=== PATIENT | male | born 1955 | race African-American/Black ===

== ENCOUNTER → 2016-11-11 | Outpatient (CLI) | payer MEDICARE ==
[2015-08-20 17:32] VITALS: BP 123/87
--- NOTE | 2016-11-11 16:49 | RAD ---
Bilateral lower extremity venous ultrasound, 11/11/2016: History: Bilateral leg edema Duplex evaluation of the deep veins in the lower extremities was performed including grayscale, color-flow and spectral Doppler analysis. The femoral and popliteal veins demonstrate normal compressibility and normal responses to distal augmentation maneuvers. Color imaging of those vessels shows no evidence of intraluminal clot. The visualized deep veins in both calves are patent. IMPRESSION: There is no sonographic evidence of deep vein thrombosis in either lower extremity.
== END | disposition home or self-care (01) ==
LOC: US 15:59
PROVIDERS: ATTEND Nurse Practitioner Adult Health
DX: I10 Essential (primary) hypertension (principal); K13.79 Other lesions of oral mucosa; R60.0 Localized edema
CPT/HCPCS: 93970

== ENCOUNTER 2016-11-28 01:55 | Emergency (ER) | payer MEDICARE ==
[~2016-11-28] VITALS: Ht 182.9 cm; Wt 114.0 kg
[2016-11-28] MEDS ORDERED: ASPIRIN 325 MG TABLET ONE (02:04)
--- NOTE | 2016-11-28 02:09 | EKG ---
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
[2016-11-28] MEDS ORDERED: fentaNYL PF 100 MCG/2 ML VIAL IV PRN ×2 (02:15)
[2016-11-28] MEDS ORDERED: NITROGLYCERIN SUBLINGUAL 0.4 MG BOTTLE OF 25. SL PRN (02:15)
[2016-11-28] MEDS ORDERED: ASPIRIN 81 MG TAB.CHEW PO ONE (02:30)
[2016-11-28] MEDS ORDERED: ONDANSETRON PF 4 MG/2 ML VIAL. IV ONE (02:30)
[2016-11-28 02:40] LABS: BASO # 0.1 x10^3/uL (0.0-0.2); BASO % 1 % (0-3); EOS # 0.1 x10^3/uL (0.0-0.7); EOS % 1 % (0-3); HEMATOCRIT 48.3 % (39.0-53.0); HEMOGLOBIN 16.2 g/dL (13.0-17.5); LYMPH # 2.2 x10^3/uL (1.0-4.8); LYMPH % 20 % (24-48); MEAN CORPUSCULAR HEMOGLOBIN 33 pg (25-35); MEAN CORPUSCULAR HGB CONC 34 g/dL (31-37); MEAN CORPUSCULAR VOLUME 98 fL (79-100); MONO # 0.9 x10^3/uL (0.0-1.1); MONO % 8 % (0-9); NEUT # 7.9 x10^3uL (1.8-7.7); NEUT % 70 % (31-73); PLATELET COUNT 250 x10^3/uL (140-400); RED BLOOD COUNT 4.95 x10^6/uL (4.30-5.70); RED CELL DISTRIBUTION WIDTH 14.3 % (11.5-14.5); WHITE BLOOD COUNT 11.2 x10^3/uL (4.0-11.0)
[2016-11-28] MEDS ORDERED: CONTRAST GIVEN MC PRN (02:45)
[2016-11-28 02:52] LABS: ALBUMIN 3.3 g/dL (3.4-5.0); ALBUMIN/GLOBULIN RATIO 0.8 (1.0-1.7); CALCIUM 8.9 mg/dL (8.5-10.1); CREATININE 1.8 mg/dL (0.7-1.3); GFR 46.3; POTASSIUM 3.5 mmol/L (3.5-5.1); TOTAL BILIRUBIN 0.4 mg/dL (0.2-1.0); TOTAL PROTEIN 7.7 g/dL (6.4-8.2)
[2016-11-28] MEDS ORDERED: IOHEXOL 300 MG/ML 75 ML VIAL. IV ONE (03:00)
--- NOTE | 2016-11-28 03:54 | RAD ---
Examination: CT angiogram chest and CT abdomen and pelvis without contrast HISTORY: History of chest pain, shortness of breath, hypertension COMPARISON: None available TECHNIQUE: Axial CT angiography images of the chest were performed with IV contrast. Coronal and sagittal 3-D MIP reformats are performed Axial CT images of the abdomen pelvis with was performed without IV contrast however it was performed after contrast administration for CT PE protocol. Coronal and sagittal images also performed Exposure: One or more of the following individualized dose reduction techniques were utilized for this examination: 1. Automated exposure control 2. Adjustment of the mA and/or kV according to patient size 3. Use of iterative reconstruction technique FINDINGS: The visualized thyroid gland grossly appears unremarkable. The ascending aorta measures 3.8 cm in transverse dimension. Majority of IV contrast is within the aorta in thoracic region which limits evaluation of the pulmonary arteries. Grossly there is very minimal contrast in the pulmonary arteries which makes evaluation of the pulmonary arteries somewhat limited. No obvious filling defect in the central pulmonary arteries on this limited exam. Mild atelectasis right lung base. No evidence of pleural effusion or pneumothorax. The visualized liver, spleen, right adrenal grossly appears unremarkable. Large cyst identified in the right kidney measuring 12.9 cm. There is a small cystic structure measuring 1.9 cm in the left kidney likely a cyst. There is moderate high density fluid, measuring 56 Hounsfield units with stranding identified in the retroperitoneum on the left abutting left adrenal gland and the pancreas the pancreas in the region of the left renal vessels and superior mesenteric vessels, likely bleed in the retroperitoneum, the source of which is difficult to discern. The IVC is somewhat flattened at this level. The gallbladder is mildly distended. Small gallstones identified within the gallbladder. The stomach is mildly distended. The small bowel is nondilated. Feces and gas noted in the colon. The appendix is not clearly identified. Urinary bladder is mildly distended. Mild thickened appearance of the urinary bladder wall. Mild degenerative changes visualized lumbar spine. IMPRESSION: 1. Moderate high density fluid, measuring 56 Hounsfield units with stranding identified in the retroperitoneum on the left abutting left adrenal gland and the pancreas in the region of the left renal vessels and superior mesenteric vessels, likely bleed in the retroperitoneum, the source of which is difficult to discern. Correlate with lab values. 2. Evaluation of the pulmonary arteries is limited due to minimal contrast within the pulmonary arteries. On the visualized images no evidence of filling defect to suggest pulmonary embolus identified centrally. 3. Bilateral renal cysts. 4. Gallstones within the gallbladder. 5. Mild thickened appearance the urinary bladder wall, nonspecific. Report called to ER physician at time of dictation. Electronically signed by: Demond Bertrand MD (11/28/2016 3:51 AM) [facility]
[2016-11-28 04:30] VITALS: BP 145/82
[2016-11-28 04:35] LABS: BARBITURATES NEG (NEG); BENZODIAZEPINES NEG (NEG); CANNABINOIDS POS (NEG); COCAINE NEG (NEG); METHADONE NEG (NEG); OPIATES NEG (NEG); PHENCYCLIDINE NEG (NEG)
[2016-11-28 04:40] LABS: AMPHETAMINE/METHAMPHETAMINE NEG (NEG)
[2016-11-28 04:41] LABS: BILIRUBIN,URINE NEG (NEG); CLARITY,URINE CLEAR; COLOR,URINE YELLOW; GLUCOSE,URINE NEG (NEG); NITRITE,URINE NEG (NEG); UROBILINOGEN,URINE 0.2 mg/dL (0.2 mg/dL)
[2016-11-28 04:42] LABS: BACTERIA,URINE 0 /HPF (0-FEW); RBC,URINE 0 /HPF (0-2); WBC,URINE 0 /HPF (0-4)
--- NOTE | 2016-11-28 05:28 | ED.ADGEN ---
Past History Past Medical History: Arthritis, Hypertension, Other Past Surgical History: Appendectomy Alcohol Use: Occasionally Drug Use: None Adult General HPI HPI Patient is a hypertension, "fast heart rate", and gouty arthritis, who presents the emergency department with a complaint of chest pain located in the left side of his chest radiating to the left back, that woke her from sleep about an hour ago. Patient describes the pain as aching, denies any inciting or improving factors. Patient states he feels "queasy", but has had no vomiting, denies any shortness of breath, denies any focal weakness, numbness, tingling, vision changes, abdominal pain, diarrhea, urinary complaints, injuries, or similar symptoms previously. He states he has been compliant with his medications. He states he took a tramadol a few hours ago for his pain in his feet and ankles, which was recently diagnosed as gouty arthritis. Patient noted to be hypertensive upon arrival to the emergency department, blood pressure of 172/100 in the right upper extremity, and 169/28 in the left upper extremity, heart rate is in the 70s and 80s, oxygen saturation is 97-98% on room air, with a respiratory rate of 20 that is unlabored. Patient denies any drugs, alcohol or cigarette use. States that he has some swelling in his feet and ankles which is actually improved today, he states that he was evaluated several weeks ago for possible DVT and that was negative, that time he was informed that he had arthritis. He denies any recent travel, history of DVT or PE, any rashes, any sick contacts or exposures. Review of Systems Review of Systems Constitutional: Denies fever or chills [] Eyes: Denies change in visual acuity, redness, or eye pain [] HENT: Denies nasal congestion or sore throat [] Respiratory: Denies cough or shortness of breath [] Cardiovascular: No additional information not addressed in HPI, left-sided chest pain radiating to the left back. Associated with nausea.] GI: Denies abdominal pain, nausea, vomiting, bloody stools or diarrhea [] : Denies dysuria or hematuria [] Musculoskeletal: Denies back pain or joint pain [] Integument: Denies rash or skin lesions [] Neurologic: Denies headache, focal weakness or sensory changes [] Endocrine: Denies polyuria or polydipsia [] Current Medications Current Medications Current Medications Medications (Trade) Dose Ordered Sig/Heydi Start Time Stop Time Status Last Admin Dose Admin Aspirin (Saba Aspirin) 325 mg STK-MED ONCE 11/28/16 02:04 11/28/16 02:05 DC Aspirin (Children'S Aspirin) 324 mg 1X ONCE 11/28/16 02:30 11/28/16 02:31 DC Fentanyl Citrate (Fentanyl 2ml Vial) 25 mcg PRN Q15MIN PRN 11/28/16 02:15 11/29/16 02:14 11/28/16 02:20 25 MCG Info (Do NOT chart on this entry -- for MONITORING) 1 each PRN DAILY PRN 11/28/16 02:45 11/30/16 02:44 Iohexol (Omnipaque 300 Mg/ml) 75 ml 1X ONCE 11/28/16 03:00 11/28/16 03:01 DC 11/28/16 02:53 75 ML Nitroglycerin (Nitrostat) 0.4 mg PRN Q5MIN PRN 11/28/16 02:15 11/29/16 02:14 11/28/16 02:20 0.4 MG Ondansetron HCl (Zofran) 4 mg 1X ONCE 11/28/16 02:30 11/28/16 02:31 DC 11/28/16 02:30 4 MG Allergies Allergies Allergies Coded Allergies Type Severity Reaction Last Updated Verified No Known Drug Allergies 08/20/15 No Physical Exam Physical Exam Constitutional: Well developed, well nourished, no acute distress, non-toxic appearance. [] HENT: Normocephalic, atraumatic, bilateral external ears normal, oropharynx moist, no oral exudates, nose normal. [] Eyes: PERRLA, EOMI, conjunctiva normal, no discharge. [] Neck: Normal range of motion, no tenderness, supple, no stridor. [] Cardiovascular:Heart rate regular rhythm, no murmur, S1, S2, no rubs or gallops. No chest wall crepitus or tenderness, unable to reproduce symptoms with palpation. [] Lungs & Thorax: Bilateral breath sounds clear to auscultation, no wheezing, rhonchi, rales. [] Abdomen: Bowel sounds normal, soft, no tenderness, no rebound, rigidity, no guarding, no masses, no pulsatile masses. [] Skin: Warm, dry, no erythema, no rash. [] Back: No tenderness, no CVA tenderness. [] Extremities: No cyanosis, no clubbing, ROM intact, no edema. Patient noted to have mild swelling in the feet bilaterally, right centigrade left, patient currently has a compression stocking in place over the right foot and ankle. No evidence of injury, no abscess formation or induration, tenderness to palpation noted in this area. Negative Homans sign. Neurologic: Alert and oriented X 3, normal motor function, normal sensory function, no focal deficits noted. [] Psychologic: Affect normal, judgement normal, mood normal. [] Current Patient Data Vital Signs Vital Signs Date Time Temp Pulse Resp B/P (MAP) Pulse Ox O2 Delivery O2 Flow Rate FiO2 11/28/16 02:20 172/100 11/28/16 02:00 97.4 67 16 95 Room Air Lab Results Laboratory Tests Test 11/28/16 02:00 11/28/16 04:00 White Blood Count 11.2 x10^3/uL (4.0-11.0) H Red Blood Count 4.95 x10^6/uL (4.30-5.70) Hemoglobin 16.2 g/dL (13.0-17.5) Hematocrit 48.3 % (39.0-53.0) Mean Corpuscular Volume 98 fL (79-100) Mean Corpuscular Hemoglobin 33 pg (25-35) Mean Corpuscular Hemoglobin Concent 34 g/dL (31-37) Red Cell Distribution Width 14.3 % (11.5-14.5) Platelet Count 250 x10^3/uL (140-400) Neutrophils (%) (Auto) 70 % (31-73) Lymphocytes (%) (Auto) 20 % (24-48) L Monocytes (%) (Auto) 8 % (0-9) Eosinophils (%) (Auto) 1 % (0-3) Basophils (%) (Auto) 1 % (0-3) Neutrophils # (Auto) 7.9 x10^3uL (1.8-7.7) H Lymphocytes # (Auto) 2.2 x10^3/uL (1.0-4.8) Monocytes # (Auto) 0.9 x10^3/uL (0.0-1.1) Eosinophils # (Auto) 0.1 x10^3/uL (0.0-0.7) Basophils # (Auto) 0.1 x10^3/uL (0.0-0.2) Prothrombin Time 10.4 SEC (9.4-11.4) Prothrombin Time INR 1.0 (0.9-1.1) PTT 25 SEC (23-33) Sodium Level 143 mmol/L (136-145) Potassium Level 3.5 mmol/L (3.5-5.1) Chloride Level 106 mmol/L (98-107) Carbon Dioxide Level 29 mmol/L (21-32) Anion Gap 8 (6-14) Blood Urea Nitrogen 17 mg/dL (8-26) Creatinine 1.8 mg/dL (0.7-1.3) H Estimated GFR (Cockcroft-Gault) 46.3 BUN/Creatinine Ratio 9 (6-20) Glucose Level 123 mg/dL (70-99) H Calcium Level 8.9 mg/dL (8.5-10.1) Total Bilirubin 0.4 mg/dL (0.2-1.0) Aspartate Amino Transferase (AST) 17 U/L (15-37) Alanine Aminotransferase (ALT) 32 U/L (16-63) Alkaline Phosphatase 99 U/L (46-116) Troponin I Quantitative < 0.017 ng/mL (0-0.055) XE-Irb-I-Type Natriuretic Peptide 147 pg/mL (0-124) H Total Protein 7.7 g/dL (6.4-8.2) Albumin 3.3 g/dL (3.4-5.0) L Albumin/Globulin Ratio 0.8 (1.0-1.7) L Lipase 208 U/L (73-393) Urine Collection Type Void Urine Color Yellow Urine Clarity Clear Urine pH 5.5 Urine Specific [place] 1.015 Urine Protein Neg (NEG-TRACE) Urine Glucose (UA) Neg mg/dL (NEG) Urine Ketones (Stick) Neg mg/dL (NEG) Urine Blood Neg (NEG) Urine Nitrite Neg (NEG) Urine Bilirubin Neg (NEG) Urine Urobilinogen Dipstick 0.2 mg/dL (0.2 mg/dL) Urine Leukocyte Esterase Neg (NEG) Urine RBC 0 /HPF (0-2) Urine WBC 0 /HPF (0-4) Urine Squamous Epithelial Cells None /LPF Urine Bacteria 0 /HPF (0-FEW) Urine Opiates Screen Neg (NEG) Urine Methadone Screen Neg (NEG) Urine Barbiturates Neg (NEG) Urine Phencyclidine Screen Neg (NEG) Urine Amphetamine/Methamphetamine Neg (NEG) Urine Benzodiazepines Screen Neg (NEG) Urine Cocaine Screen Neg (NEG) Urine Cannabinoids Screen Pos (NEG) Urine Ethyl Alcohol Neg (NEG) EKG EKG EC: Sinus rhythm, heart rate 60 beats/minute, upright axis, QTC of 422, ND of 158, QRS of 80, upright axis, contour normality is noted in the anterior leads, no ST elevations or depressions, abnormal ECG, no prior for comparison, does not meet STEMI criteria. As interpreted by me. [] Radiology/Procedures Radiology/Procedures [][address] [address] IMAGING REPORT Signed PATIENT: HERBER DELGADO ACCOUNT: [id number] : 1955 LOCATION: ER AGE: 61 SEX: M EXAM STATUS: REG ER ORD. PHYSICIAN: ALHAJI CAM DO REASON: HTN//abnormal CT chest PROCEDURE: CT ABDOMEN PELVIS WO CONTRAST Examination: CT angiogram chest and CT abdomen and pelvis without contrast HISTORY: History of chest pain, shortness of breath, hypertension COMPARISON: None available TECHNIQUE: Axial CT angiography images of the chest were performed with IV contrast. Coronal and sagittal 3-D MIP reformats are performed Axial CT images of the abdomen pelvis with was performed without IV contrast however it was performed after contrast administration for CT PE protocol. Coronal and sagittal images also performed Exposure: One or more of the following individualized dose reduction techniques were utilized for this examination: 1. Automated exposure control 2. Adjustment of the mA and/or kV according to patient size 3. Use of iterative reconstruction technique FINDINGS: The visualized thyroid gland grossly appears unremarkable. The ascending aorta measures 3.8 cm in transverse dimension. Majority of IV contrast is within the aorta in thoracic region which limits evaluation of the pulmonary arteries. Grossly there is very minimal contrast in the pulmonary arteries which makes evaluation of the pulmonary arteries somewhat limited. No obvious filling defect in the central pulmonary arteries on this limited exam. Mild atelectasis right lung base. No evidence of pleural effusion or pneumothorax. The visualized liver, spleen, right adrenal grossly appears unremarkable. Large cyst identified in the right kidney measuring 12.9 cm. There is a small cystic structure measuring 1.9 cm in the left kidney likely a cyst. There is moderate high density fluid, measuring 56 Hounsfield units with stranding identified in the retroperitoneum on the left abutting left adrenal gland and the pancreas the pancreas in the region of the left renal vessels and superior mesenteric vessels, likely bleed in the retroperitoneum, the source of which is difficult to discern. The IVC is somewhat flattened at this level. The gallbladder is mildly distended. Small gallstones identified within the gallbladder. The stomach is mildly distended. The small bowel is nondilated. Feces and gas noted in the colon. The appendix is not clearly identified. Urinary bladder is mildly distended. Mild thickened appearance of the urinary bladder wall. Mild degenerative changes visualized lumbar spine. IMPRESSION: 1. Moderate high density fluid, measuring 56 Hounsfield units with stranding identified in the retroperitoneum on the left abutting left adrenal gland and the pancreas in the region of the left renal vessels and superior mesenteric vessels, likely bleed in the retroperitoneum, the source of which is difficult to discern. Correlate with lab values. 2. Evaluation of the pulmonary arteries is limited due to minimal contrast within the pulmonary arteries. On the visualized images no evidence of filling defect to suggest pulmonary embolus identified centrally. 3. Bilateral renal cysts. 4. Gallstones within the gallbladder. 5. Mild thickened appearance the urinary bladder wall, nonspecific. Report called to ER physician at time of dictation. Electronically signed by: Demond Alexis MD (11/28/2016 3:51 AM) [id number] DICTATED AND SIGNED BY: DEMOND ALEXIS MD DATE: 11/28/16 0326 CC: TONY MENDES MD; ALHAJI CAM DO ~ Course & Med Decision Making Course & Med Decision Making Pertinent Labs and Imaging studies reviewed. (See chart for details) Patient with hypertension as stated, complaining of chest discomfort, received aspirin, nitroglycerin, and Ivelisse in the ED, with significant improvement of both blood pressure and chest discomfort. Pain from an 8 down to a 2, blood pressure is now 150s over 80s, heart rate remains in the 80s. Patient agreeable to receiving laboratory studies and imaging of the chest, chest x-ray did not reveal any concerning findings, we did proceed with CT of the chest to evaluate for abnormality of the great vessels and other concerning findings. CT of the chest did not reveal evidence of any abnormalities of the great vessels, however imaging did note a fluid collection in the lower regions of imaging, I was contacted during this imaging by the flight readiness technician, Edna, at that time we did obtain additional imaging of the abdomen and pelvis without contrast. Imaging was limited as the patient has a creatinine of 1.8 and his artery received a contrast bolus. I was contacted by the reading radiologist, Dr. Alexis, who is concerned that the abnormality noted on the CT is a retroperitoneal bleed. There is no evidence of active extravasation, or source for this blood noted in the patient's abdomen. I did discuss this finding with the patient, he is resting comfortably at this time after receiving pain medication as stated, blood pressure remains 154/90 with a heart rate in the 80s , he denies any concerning history or events that may have led to retroperitoneal bleeding, his abdomen is soft and nontender. Discussed with patient that the pain he is experiencing in his chest could be due to diaphragmatic irritation from the blood.I did speak with Dr. Harrington of general surgery, patient's presentation, course, and findings as above reviewed, he recommends the patient be transferred to [facility] for additional evaluation and monitoring, patient's hemoglobin is 16.2, no indications for additional interventions or actions at this time. I did discuss this recommendation with the patient. Patient is agreeable for transfer and admission to [facility], written consent obtained. I spoke with Dr. Linda of internal medicine, patient accepted to her service for admission to the medical telemetry floor. Patient remained stable on the monitor in sinus rhythm, blood pressures 150s over 80s, heart rate in the 80s, oxygen saturation in the upper 90s, pain well controlled at time of transfer to EMS for transport to [facility]. Final Impression Final Impression [] Problems: Dragon Disclaimer Dragon Disclaimer This electronic medical record was generated, in whole or in part, using a voice recognition dictation system. Departure: Impression: Primary Impression: Retroperitoneal bleed Additional Impressions: Chest pain Bilateral lower extremity pain Disposition: OTHER Condition: IMPROVED TUTUALHAJI CHAMPION DO Nov 28, 2016 05:28
[2016-11-28] MEDS ORDERED: ASPIRIN 325 MG TABLET PO ONE (06:00)
[2016-11-28 07:39] LABS: HEMOGLOBIN ISTAT 17.3 gm/dL; POTASSIUM ISTAT 3.4 mmol/L (3.5-5.0)
--- NOTE | 2016-11-28 07:48 | RAD ---
Indication: Chest pain. Technique: Upright portable chest radiograph was obtained. Comparison is from August 20, 2015. Findings: The lungs are clear. There is elevation of the right hemidiaphragm. The heart is not enlarged and there is no heart failure. Bony structures are intact. Impression: No acute thoracic findings.
== END 2016-11-28 05:24 | disposition short-term general hospital (02) ==
LOC: ER 01:55
DX: K66.1 Hemoperitoneum (principal); R07.89 Other chest pain; M79.662 Pain in left lower leg; M79.661 Pain in right lower leg; I10 Essential (primary) hypertension; M19.90 Unspecified osteoarthritis, unspecified site; M10.9 Gout, unspecified
CPT/HCPCS: 36415; 71010; 71275; 74176; 80053; 80307; 81001; 83690; 83880; 84484; 85025; 85610; 85730; 93005; 96374; 96375; 96376; 99285; J2405; J3010; Q9967; 80047; G0479

== ENCOUNTER 2019-09-10 18:19 | Emergency (ER) | payer MEDICARE ==
[~2019-09-10] VITALS: Ht 182.9 cm; Wt 118.0 kg
[2019-09-10 18:30] VITALS: BP 160/92
--- NOTE | 2019-09-10 18:39 | PHYS DOC ---
Past History Past Medical History: Arthritis, Bronchitis, Hypertension, Other Past Medical History Hx. Gout Past Surgical History: Appendectomy Alcohol Use: Occasionally Drug Use: None General Adult EDM: Chief Complaint: FEVER HPI: HPI: "...I am a mess.. .I am having really bad pain in this Rt. elbow..my Rt. ankle.. and feel ... Like I got a fever.. been coughing a little..."// "a little more short of breath..." Patient is a 64 year old male who presents with above hx of fever, chills, malaise and pain in right elbow right ankle. Patient has had recent travel to [place] to cloth picker his car...1 week ago. Patient states no other family members were sick in [place]. Patient does smoke. Patient has had a history of gout in the past. Patient normally follows with Dr. Mendes. Patient denies any changes admitted. Patient denies any history of no depression. Review of Systems: Review of Systems: Constitutional: Hx. of fever or chills Eyes: Denies change in visual acuity HENT: Denies nasal congestion or sore throat Respiratory: Hx. non-productive cough Cardiovascular: Denies chest pain or edema GI: Denies abdominal pain, nausea, vomiting, bloody stools or diarrhea : Denies dysuria Musculoskeletal: Complaints of Rt. elbow and ankle pain Integument: Denies rash Neurologic: Denies headache, focal weakness or sensory changes Endocrine: Denies polyuria or polydipsia Lymphatic: Denies swollen glands Psychiatric: Denies depression or anxiety Heart Score: HEART Score for Chest Pain: HEART Score for Chest Pain Response (Comments) Value History Slighlty/Non-Suspicious 0 ECG Nonspecific Repolarizatio 1 Age > 65 2 Risk Factors 1 or 2 Risk Factors 1 Troponin < Normal Limit 0 Total 4 Risk Factors: Risk Factors: DM, Current or recent (<one month) smoker, HTN, HLP, family history of CAD, obesity. Risk Scores: Score 0 - 3: 2.5% MACE over next 6 weeks - Discharge Home Score 4 - 6: 20.3% MACE over next 6 weeks - Admit for Clinical Observation Score 7 - 10: 72.7% MACE over next 6 weeks - Early Invasive Strategies Family History: Family History: Noncontributory to presentation Current Medications: Current Meds: See nursing for home meds Allergies: Allergies: Allergies Coded Allergies Type Severity Reaction Last Updated Verified No Known Drug Allergies 08/20/15 No Physical Exam: PE: Constitutional: Moderate acute distress, non-toxic appearance. [] HENT: Normocephalic, atraumatic, bilateral external ears normal, oropharynx moist, no oral exudates, nose normal. [] Eyes: PERRLA, EOMI, conjunctiva normal, no discharge. [] Neck: Normal range of motion, no tenderness, supple, no stridor. [] Cardiovascular: Tachycardia heart rate regular rhythm, no murmur [] PMI to the left Lungs & Thorax: Bilateral breath sounds equal at apex with scattered wheeze throughout on auscultation [] Abdomen: Bowel sounds normal, soft, no tenderness, no masses, no pulsatile masses. Obese. Old surgery scars Skin: Warm, dry, no erythema, no rash. [] Back: No tenderness, no CVA tenderness. [] Extremities: Marked right elbow and right ankle tenderness, no cyanosis, no clubbing, ROM intact, mild edema to right elbow. Does have tenderness on palpation of right elbow bursa. Mild tenderness in right ankle on percussion of malleolus Neurologic: Alert and oriented X 3, amatory with a slight limp. Decreased plantar sensation, no focal deficits noted. [] Psychologic: Affect anxious, judgement normal, mood normal. [] EKG: EKG: My interpretation EKG shows a sinus rhythm at 97 bpm. No findings of acute STEMI with contralateral changes [] Radiology/Procedures: Radiology/Procedures: [place] [address] IMAGING REPORT Signed PATIENT: HILDA DELGADO: [id number] : 1955 LOCATION: ER AGE: 64 SEX: M EXAM STATUS: REG ER ORD. PHYSICIAN: RELL AVILEZ MD REASON: Right elbow pain x 2 days; no trauma. Hx: Gout PROCEDURE: ELBOW RIGHT 3V ELBOW RIGHT 3V DATE: 09/10/2019 7:00 PM INDICATION: Reason: Right elbow pain x 2 days; no trauma. Hx: Gout / Spl. Instructions: / History: COMPARISON: None. FINDINGS: Bones: There is no evidence of acute fracture or dislocation. Joints: No osseous erosions. There is no joint effusion. Mineralization in the joint space may relate to chondrocalcinosis. Miscellaneous: None. IMPRESSION: No acute osseous abnormality. No erosions. Electronically signed by: Dieter Soto MD (09/10/2019 8:42 PM) [facility] DICTATED AND SIGNED BY: DIETER SOTO MD DATE: 09/10/192041 [address] [address] IMAGING REPORT Signed PATIENT: HILDA DELGADO: [id number] : 1955 LOCATION: ER AGE: 64 SEX: M EXAM STATUS: REG ER ORD. PHYSICIAN: RELL AVILEZ MD REASON: Chest pain, dyspnea, fever, recent travel. Reduced dose Omni 60cc PROCEDURE: CT ANGIOGRAPHY CHEST CTA Chest with contrast: Clinical History: Reason: Chest pain, dyspnea, fever, recent travel. Axial helical images of the chest were obtained after the administration of 60 cc of IV Omni and timed appropriately for a pulmonary arterial study. Conventional axial reconstruction was performed in addition to coronal, sagittal and bilateral oblique MIP (maximum intensity projection). This study was ordered to detect possible pulmonary embolism. COMPARISON: November 28, 2016 There are no filling defects to suggest pulmonary embolism. There is elevation right hemidiaphragm. A few linear opacities in the lung bases are likely discoid atelectasis. There is bilateral renal cysts including a large cyst on the right seen previously. There is no mediastinal or hilar lymphadenopathy. The thoracic aorta appears normal. Impression: 1. No evidence of pulmonary embolism. 2. Stable appearance of the chest. PQRS Compliance Statement: One or more of the following individualized dose reduction techniques were utilized for this examination: 1. Automated exposure control 2. Adjustment of the mA and/or kV according to patient size 3. Use of iterative reconstruction technique Electronically signed by: Bryn Stock III, MD (09/10/2019 8:42 PM) [id number] [][address] [address] IMAGING REPORT Signed PATIENT: HILDA DELGADO: [id number] : 1955 LOCATION: ER AGE: 64 SEX: M EXAM STATUS: REG ER ORD. PHYSICIAN: RELL AVILEZ MD REASON: Right ankle pain x 2 days, no trauma Hx: Gout PROCEDURE: ANKLE RIGHT 3V ANKLE RIGHT 3V DATE: 09/10/2019 7:00 PM INDICATION: Reason: Right ankle pain x 2 days, no trauma Hx: Gout / Spl. Instructions: / History: COMPARISON: None. FINDINGS: Bones: There is no evidence of acute fracture or dislocation. Joints: The ankle mortise is congruent. No widening of the distal tibiofibular syndesmosis. Mild degenerative changes of the Miscellaneous: None. IMPRESSION: No acute osseous abnormality. Electronically signed by: Dieter Soto MD (09/10/2019 8:38 PM) [facility] DICTATED AND SIGNED BY: DIETER SOTO MD DATE: 09/10/192037 CC: TONY MENDES MD; RELL AVILEZ MD ~ Course & Med Decision Making: Course & Med Decision Making Pertinent Labs and Imaging studies reviewed. (See chart for details) Patient to stop meat intake for a couple days. Avoid high urate meats after 2 days. Patient to take allopurinol 100 mg daily. Patient take Tylenol and ibuprofen for pain. If marked pain may take Vicoprofen. Patient use MDI 2 puffs 4 times a day. Patient taking Zithromax 250 mg today. Patient using MDI 2 puffs 4 times a day. Patient follow-up with Dr. Mendes. Patient return if any concerns. Stop smoking. Impression: 1. Hx. Fever 2. Viral Syndrome 3. Bronchitis 4. Suspect Gout/ vs Pseudo Gout - pain in Rt. elbow. 5. Elevate Uric acid level 6. Hypokalemia 3.2 7. Elevated creatinine 1.8 [] Dragon Disclaimer: Kaye Disclaimer: This electronic medical record was generated, in whole or in part, using a voice recognition dictation system. Departure Departure: Disposition: HOME/RESIDENCE PRIOR TO ADM Condition: STABLE Referrals: TONY MENDES MD (PCP) Scripts Hydrocodone/Ibuprofen (HYDROCODONE-IBUPROFEN 7.5-200 ) 1 Each Tablet 1 TAB PO PRN Q6HRS PRN for PAIN, #30 TAB 0 Refills Prov: ERLL AVILEZ MD 09/10/19 Azithromycin (ZITHROMAX) 250 Mg Tablet 250 MG PO DAILY for ANTI-BIOTIC for 5 Days, #5 TAB 0 Refills Prov: RELL AVILEZ MD 09/10/19 Allopurinol (ALLOPURINOL) 100 Mg Tablet 100 MG PO DAILYWBKFT for gout for 30 Days, #30 TAB Prov: RELL AVILEZ MD 09/10/19 Dragon Disclaimer This chart was dictated in whole or in part using Voice Recognition software in a busy, high-work load, and often noisy Emergency Department environment. It may contain unintended and wholly unrecognized errors or omissions. RELL AVILEZ MD Sep 10, 2019 18:39
[2019-09-10] MEDS ORDERED: IV RINGERS SOLUTION,LACTATED 1,000 ML IV SCH (19:00)
--- NOTE | 2019-09-10 19:28 | EKG ---
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
[2019-09-10] MEDS ORDERED: IOHEXOL 350 MG/ML 100 ML VIAL. IV ONE (19:30)
[2019-09-10] MEDS ORDERED: CONTRAST GIVEN MC PRN (19:30)
[2019-09-10 19:36] LABS: BASO # 0.1 x10^3/uL (0.0-0.2); BASO % 1 % (0-3); EOS % 1 % (0-3); HEMATOCRIT 50.8 % (39.0-53.0); HEMOGLOBIN 17.1 g/dL (13.0-17.5); LYMPH # 1.7 x10^3/uL (1.0-4.8); LYMPH % 16 % (24-48); MEAN CORPUSCULAR HEMOGLOBIN 32 pg (25-35); MEAN CORPUSCULAR HGB CONC 34 g/dL (31-37); MEAN CORPUSCULAR VOLUME 96 fL (79-100); MONO % 9 % (0-9); NEUT % 74 % (31-73); PLATELET COUNT 183 x10^3/uL (140-400); RED BLOOD COUNT 5.32 x10^6/uL (4.30-5.70); RED CELL DISTRIBUTION WIDTH 14.4 % (11.5-14.5); WHITE BLOOD COUNT 10.8 x10^3/uL (4.0-11.0)
[2019-09-10 19:47] LABS: CREATININE 1.8 mg/dL (0.7-1.3); GFR 45.9; POTASSIUM 3.2 mmol/L (3.5-5.1)
[2019-09-10 19:53] LABS: ALBUMIN 3.7 g/dL (3.4-5.0); DIRECT BILIRUBIN 0.2 mg/dL (0.0-0.2); MAGNESIUM 2.2 mg/dL (1.8-2.4); TOTAL BILIRUBIN 0.6 mg/dL (0.2-1.0); TOTAL PROTEIN 7.5 g/dL (6.4-8.2); URIC ACID 8.2 mg/dL (3.5-7.2)
--- NOTE | 2019-09-10 20:41 | RAD ---
ANKLE RIGHT 3V DATE: 09/10/2019 7:00 PM INDICATION: Reason: Right ankle pain x 2 days, no trauma Hx: Gout / Spl. Instructions: / History: COMPARISON: None. FINDINGS: Bones: There is no evidence of acute fracture or dislocation. Joints: The ankle mortise is congruent. No widening of the distal tibiofibular syndesmosis. Mild degenerative changes of the Miscellaneous: None. IMPRESSION: No acute osseous abnormality. Electronically signed by: Julius Soto MD (09/10/2019 8:38 PM) ABDOUL
--- NOTE | 2019-09-10 20:45 | RAD ---
CTA Chest with contrast: Clinical History: Reason: Chest pain, dyspnea, fever, recent travel. Axial helical images of the chest were obtained after the administration of 60 cc of IV Omni and timed appropriately for a pulmonary arterial study. Conventional axial reconstruction was performed in addition to coronal, sagittal and bilateral oblique MIP (maximum intensity projection). This study was ordered to detect possible pulmonary embolism. COMPARISON: November 28, 2016 There are no filling defects to suggest pulmonary embolism. There is elevation right hemidiaphragm. A few linear opacities in the lung bases are likely discoid atelectasis. There is bilateral renal cysts including a large cyst on the right seen previously. There is no mediastinal or hilar lymphadenopathy. The thoracic aorta appears normal. Impression: 1. No evidence of pulmonary embolism. 2. Stable appearance of the chest. PQRS Compliance Statement: One or more of the following individualized dose reduction techniques were utilized for this examination: 1. Automated exposure control 2. Adjustment of the mA and/or kV according to patient size 3. Use of iterative reconstruction technique Electronically signed by: Bryn Stock III, MD (09/10/2019 8:42 PM) [id number]
--- NOTE | 2019-09-10 20:45 | RAD ---
ELBOW RIGHT 3V DATE: 09/10/2019 7:00 PM INDICATION: Reason: Right elbow pain x 2 days; no trauma. Hx: Gout / Spl. Instructions: / History: COMPARISON: None. FINDINGS: Bones: There is no evidence of acute fracture or dislocation. Joints: No osseous erosions. There is no joint effusion. Mineralization in the joint space may relate to chondrocalcinosis. Miscellaneous: None. IMPRESSION: No acute osseous abnormality. No erosions. Electronically signed by: Julius Soto MD (09/10/2019 8:42 PM) ABDOUL
--- NOTE | 2019-09-10 20:46 | RAD ---
CHEST PA LATERAL Technique: PA and lateral views of the chest were obtained. Clinical History: Reason: Chest pain, dyspnea, fever, recent travel / Spl. Instructions: / History: Comparison: November 28, 2016. Findings: The heart and pulmonary vasculature appear within normal limits. The lungs are clear. The pleural margins are clear. Elevation of the right hemidiaphragm was seen previously. Impression: Stable appearance of the chest. Electronically signed by: Bryn Stock III, MD (09/10/2019 8:43 PM) [id number]
[2019-09-10 21:14] LABS: BILIRUBIN,URINE NEG (NEG); CLARITY,URINE CLEAR; COLOR,URINE YELLOW; GLUCOSE,URINE NEG (NEG); NITRITE,URINE NEG (NEG)
[2019-09-10 21:15] LABS: BARBITURATES NEG (NEG); BENZODIAZEPINES NEG (NEG); CANNABINOIDS NEG (NEG); COCAINE NEG (NEG); METHADONE NEG (NEG); OPIATES NEG (NEG); PHENCYCLIDINE NEG (NEG)
[2019-09-10 21:18] LABS: BACTERIA,URINE 0 /HPF (0-FEW); SQUAMOUS EPITHELIAL CELL,UR OCC /LPF; WBC,URINE 0 /HPF (0-4)
[2019-09-10 21:21] LABS: AMPHETAMINE/METHAMPHETAMINE NEG (NEG)
[2019-09-10] MEDS ORDERED: MORPHINE SULFATE 10 MG/ML SYRINGE. ONE (21:45)
[2019-09-10] MEDS ORDERED: AZITHROMYCIN 250 MG TABLET. PO ONE (21:45)
[2019-09-10] MEDS ORDERED: ALBUTEROL SULFATE 8GM INHALER. INH ONE (21:45)
[2019-09-10] MEDS ORDERED: MORPHINE SULFATE 10 MG/ML SYRINGE. SQ ONE (22:15)
[2019-09-10] MEDS ORDERED: ALLO100T PO (23:05)
[2019-09-10] MEDS ORDERED: HYDR-1179 PO (23:05)
[2019-09-10] MEDS ORDERED: AZIT250T PO (23:05)
[2019-09-11] MEDS ORDERED: MORPHINE SULFATE 10 MG/ML SYRINGE. SQ ONE (00:15)
[2019-09-11] MEDS ORDERED: KETOROLAC 30 MG/ML VIAL. IVP ONE (00:15)
[2019-09-11] MEDS ORDERED: methylPREDNISolone SOD SUCC PF 125 MG/2 ML VIAL. IV ONE (00:15)
[2019-09-11] MEDS ORDERED: POTASSIUM CHLORIDE 20 MEQ TABLET.ER. PO ONE (00:45)
== END 2019-09-11 00:40 | disposition home or self-care (01) ==
LOC: ER 18:19
DX: B34.9 Viral infection, unspecified (principal); Z20.828 Contact with and (suspected) exposure to other viral communicable diseases; R50.9 Fever, unspecified; J40 Bronchitis, not specified as acute or chronic; M25.521 Pain in right elbow; E87.6 Hypokalemia; R79.82 Elevated C-reactive protein (CRP); M19.90 Unspecified osteoarthritis, unspecified site; I10 Essential (primary) hypertension; Z90.49 Acquired absence of other specified parts of digestive tract
CPT/HCPCS: 36415; 71046; 71275; 73080; 73610; 80048; 80076; 80307; 81001; 82550; 83690; 83735; 84443; 84484; 84550; 85025; 85379; 85610; 85730; 93005; 96372; 96374; 96375; 99285; J0456; J1885; J2270; J2930; J7120; J7613; Q9967; U0003-CS

== ENCOUNTER 2019-10-19 14:45 | Inpatient (IN) | payer MEDICARE ==
[~2019-10-19] VITALS: Ht 180.3 cm; Wt 115.2 kg
[~2019-10-19 14:45] MED LIST: ALLO100T PO; AZIT250T PO; HYDR-1179 PO
[2019-10-19 15:15] VITALS: BP 177/93
[2019-10-19] MEDS: HYDROcodone/APAP 7.5/325MG 1 TAB TABLET PO PRN (15:28)
[2019-10-19 16:15] LABS: BASO # 0.1 x10^3/uL (0.0-0.2); BASO % 1 % (0-3); EOS % 0 % (0-3); HEMATOCRIT 45.2 % (39.0-53.0); HEMOGLOBIN 15.4 g/dL (13.0-17.5); LYMPH # 1.3 x10^3/uL (1.0-4.8); LYMPH % 15 % (24-48); MEAN CORPUSCULAR HEMOGLOBIN 33 pg (25-35); MEAN CORPUSCULAR HGB CONC 34 g/dL (31-37); MEAN CORPUSCULAR VOLUME 96 fL (79-100); MONO # 0.9 x10^3/uL (0.0-1.1); MONO % 10 % (0-9); NEUT # 6.7 x10^3uL (1.8-7.7); NEUT % 74 % (31-73); PLATELET COUNT 138 x10^3/uL (140-400); RED BLOOD COUNT 4.72 x10^6/uL (4.30-5.70); RED CELL DISTRIBUTION WIDTH 14.6 % (11.5-14.5); WHITE BLOOD COUNT 9.1 x10^3/uL (4.0-11.0)
[2019-10-19 16:37] LABS: ALBUMIN/GLOBULIN RATIO 0.7 (1.0-1.7); C REACTIVE PROTEIN 106.7 mg/L (0-3.3); CALCIUM 8.4 mg/dL (8.5-10.1); GFR 40.7; POTASSIUM 3.4 mmol/L (3.5-5.1); TOTAL BILIRUBIN 0.6 mg/dL (0.2-1.0); TOTAL PROTEIN 7.1 g/dL (6.4-8.2)
--- NOTE | 2019-10-19 16:50 | RAD ---
CT scan of the left knee without contrast 10/19/2019 CLINICAL HISTORY: Cellulitis involving the left knee. TECHNIQUE: Unenhanced, contiguous, 0.625 mm axial sections were obtained through the left knee. 3 mm reconstructed sagittal, axial and coronal images were obtained. One or more of the following individualized dose reduction techniques were utilized for this study: 1. Automated exposure control. 2. Adjustment of the mA and/or kV according to patient size. 3. Use of iterative reconstruction technique. FINDINGS: Surgical changes are seen consistent with an ACL reconstruction. Moderate to severe degenerative changes are seen involving all 3 compartments of the left knee. These consist of joint compartment narrowing, subchondral sclerosis and associated osteophyte formation. Chondrocalcinosis is seen involving the medial and lateral compartment. There is a moderate to large sized left knee effusion. Soft tissue swelling is seen anterior to the patella. Increased density is seen within the adjacent fat. These findings would be consistent with the patient's history of a cellulitis. Edema is seen extending from the subcutaneous fat medially and laterally. No abnormal fluid collection is seen to suggest evidence of an abscess. There is no definite CT evidence of osteomyelitis. IMPRESSION: 1. Findings are seen consistent with the patient's history of a cellulitis as discussed above. No abscess is seen. There is no CT evidence of osteomyelitis. 2. Moderate to severe degenerative changes are seen involving the left knee as discussed above. There is a moderate to large sized suprapatellar joint effusion. Electronically signed by: Javier Saenz MD (10/19/2019 4:47 PM) [id number]
[2019-10-19] MEDS ORDERED: AMLO10TA8 PO (17:08)
[2019-10-19] MEDS ORDERED: ALLO100T PO (17:13)
[2019-10-19] MEDS: amLODIPine BESYLATE 10 MG TABLET PO SCH (17:25)
--- NOTE | 2019-10-19 17:44 | NUR ---
PATIENT IS A 64 Y O MALE ADMITTED TO ROOM 105. PATIENT WAS EARLIER ON A FLOOR AN OUTPATIENT, CAME FOR ANTIBIOTIC INFUSIOND/T CELLULITIS OF LLE, VS CHECKED, TEMP WAS 101.7, CALLED DR. MENDES, OBTAINED ADMIT ORDER. PT IS A/O X4, ABLE TO TRANSFER FROM W/C TO BED WITH ASSIST X 1, UNSTEADY D/T PAIN IN HIS LLE. PT BELONGINGS GOT INVENTORIED, HOSPITAL POLICIES REVIEWED. WILL CONTINUE TO MONITORING.
[2019-10-19] MEDS ORDERED: HYDROcodon/IBUPROFEN 7.5/200MG 1 TAB TABLET PO PRN (18:30)
[2019-10-19 19:14] VITALS: BP 154/98
[2019-10-19 21:54] VITALS: BP 161/96
[2019-10-19] MEDS: CLINDAMYCIN 600MG PREMIX 50 ML IV SCH (21:54)
[2019-10-20] MEDS: HYDROcodone/APAP 7.5/325MG 1 TAB TABLET PO PRN (04:27)
[2019-10-20 05:27] VITALS: BP 163/96
[2019-10-20] MEDS: CLINDAMYCIN 600MG PREMIX 50 ML IV SCH ×3 (06:02→21:08)
[2019-10-20 06:33] LABS: BASO # 0.1 x10^3/uL (0.0-0.2); BASO % 1 % (0-3); EOS % 0 % (0-3); HEMATOCRIT 46.3 % (39.0-53.0); HEMOGLOBIN 15.6 g/dL (13.0-17.5); LYMPH # 1.3 x10^3/uL (1.0-4.8); LYMPH % 14 % (24-48); MEAN CORPUSCULAR HEMOGLOBIN 32 pg (25-35); MEAN CORPUSCULAR HGB CONC 34 g/dL (31-37); MEAN CORPUSCULAR VOLUME 97 fL (79-100); MONO % 11 % (0-9); NEUT # 6.8 x10^3uL (1.8-7.7); NEUT % 74 % (31-73); PLATELET COUNT 136 x10^3/uL (140-400); RED CELL DISTRIBUTION WIDTH 14.8 % (11.5-14.5); WHITE BLOOD COUNT 9.2 x10^3/uL (4.0-11.0)
[2019-10-20 06:41] LABS: CALCIUM 8.4 mg/dL (8.5-10.1); CREATININE 1.5 mg/dL (0.7-1.3); GFR 56.7; POTASSIUM 3.6 mmol/L (3.5-5.1)
[2019-10-20] MEDS ORDERED: ALLOPURINOL 100 MG TABLET. PO SCH (08:00)
[2019-10-20] MEDS: amLODIPine BESYLATE 10 MG TABLET PO SCH (08:21)
[2019-10-20] MEDS: ALLOPURINOL 100 MG TABLET. PO SCH (08:21)
[2019-10-20] MEDS: LACTOBACILLUS RHAMNOSUS GG 1 CAPSULE. PO SCH ×2 (09:00→21:07)
[2019-10-20 10:58] VITALS: BP 149/91
[2019-10-20] MEDS ORDERED: fentaNYL 50MCG/HR 1 PATCH PATCH TD SCH (12:00)
[2019-10-20] MEDS: ENOXAPARIN 40 MG/0.4 ML SYRINGE. SQ SCH (12:32)
--- NOTE | 2019-10-20 13:11 | PN ---
DATE: SUBJECTIVE: The patient is a 64-year-old gentleman who fell in a pothole at the [facility] parking lot here in [place]. He was treated as an outpatient; however, got progressively worse despite the use of antibiotics IM as well as oral. The patient notes the pain has increased and however here in the hospital where he was admitted because of failure to progress with outpatient therapy, the leg is slightly less swollen, says it feels marginally better, but still is quite swollen, red and hot. The patient is still on double antibiotics of clindamycin and vancomycin to cover anaerobic as well as possible MRSA infection. The patient's pain level is approximately 8-9/10. OBJECTIVE: VITAL SIGNS: His temperature has come down since he has been in the hospital to 98.9, blood pressure 130/65, respiratory rate 22, pulse is 90. GENERAL: Presently, he is on 2 liters per nasal cannula. LUNGS: Otherwise, lungs are diminished, some crackles in the bases. We will have him do some incentive spirometry. CARDIOVASCULAR: He is on Lovenox treatments for DVT prophylaxis. NEUROLOGIC: The patient otherwise is in good spirits. His speech is fluent and spontaneous. Neurologically, alert and oriented x 3. EXTREMITIES: His left knee is swollen, tender and hot. There is still some mild tenderness up into the thigh itself, but seems to be improving somewhat with the double antibiotics. Pulses are noted distally. LABORATORY DATA: His white count is not indicative of the infection. His white count was only 9.2, hemoglobin ____ 15 and 46, platelets are slightly decreased. No obvious left shift. Chemistries show slight elevation of blood sugar 129. CRP of 106, potassium came up from 3.4 to 3.6. Creatinine has come down from 2 down to 1.5 with GFR increased from 40 to 56 with better hydration. The patient will get a PICC line placed. IMPRESSION: 1. Cellulitis to the left leg, accidental fall with a puncture wound to the below the left knee secondary to a pothole at [facility]. 2. Chronic kidney disease, stage 3. 3. Hyperglycemia. 4. Hypokalemia. 5. Moderate protein malnutrition. CT scan shows cellulitis, no evidence of osteomyelitis, [id number] degenerative changes involving the left knee large size subpatellar joint effusion. The degenerative changes are involving all 3 compartments consistent of narrowing a course as well sclerosing and osteophyte formation. Edema was noted extending from the subcutaneous fat medially and laterally. In any case, we will continue with the IV antibiotics, placed on PICC line, so that when he was discharged, he can continue IV antibiotics for this cellulitis. No fractures are noted as well. He is on Lovenox for prophylaxis and appropriate pain medications. TONY MENDES MD DR: LEI/luciano JOB#: [id number] / [id number]
[2019-10-20] MEDS: IBUPROFEN 400 MG TABLET. PO PRN (14:10)
[2019-10-20] MEDS: MORPHINE SULFATE 2 MG/ML DISP.SYRIN. IV PRN ×2 (14:20→21:09)
[2019-10-20 16:11] VITALS: BP 156/82
--- NOTE | 2019-10-20 16:24 | NUR ---
Allergies and reactions y INR BUN Cr Platelets y Blood culture done blood culture results y Order Verified y Consent signed y Previous PICC placement y Past Medical/Surgical history and current diagnosis reviewed Patient Medical /Surgical History Related to PICC line placement None Special considerations for PICC line placement None PICC placement indication Caustic medication class drug usage, terminologist antibiotic usage, Multiple/ Frequent blood draws Name of PICC Nurse Esperanza kessler TUMBLING BARREL PAINTER MSN CMSRN [facility] [employer] SECRETARY-C
--- NOTE | 2019-10-20 17:35 | NUR ---
Procedure: Following complete explanation of the PICC procedure including the indications, risks, and potential complications, informed consent was obtained. The possibility for infection was discussed along with signs, symptoms, and prevention. All the questions were answered. IV Device Protocol was used. Written and verbal patient education was provided. Hand hygiene performed. Standardized central line checklist was utilized. The patient was placed in the supine position, the arm was prepped with chlorhexidine and patient draped with maximum sterile barrier. 3 mL 1% lidocaine was infiltrated into the skin to provide local anesthesia. A thorough assessment of Right upper extremity completed. Using real-time ultrasound guidance and standardized micro puncture set, the bacilic vein was punctured and a peel away sheath was placed using the modified Seldinger technique. A tip location device was used to ensure adequate catheter placement. The catheter was secured using a securement device and an antimicrobial patch was applied directly on the insertion site followed by a transparent dressing. All ports withdraw blood and flush without resistance. Patient tolerated the procedure without apparent complication(s). Single Lumen Power PICC placement successful and uncomplicated. Placement verified by EKG tip confirmation system. Complications: None Esperanza Coombs HAT PARTS CUTTER MACHINE MSN CMSRN [facility] [employer] SERVICE COORDINATOR-c
--- NOTE | 2019-10-20 17:37 | NUR ---
46 CM 0 out Addendum: 10/20/19 at 1817 by LOREN SANTIAGO RN The actually picc length is 49 cm inside 0 out. Had to add a few CM due to being below eboni.
[2019-10-20 19:28] VITALS: BP 127/83
[2019-10-20 22:25] VITALS: BP 149/89
[2019-10-21] MEDS: IBUPROFEN 400 MG TABLET. PO PRN (02:59)
--- NOTE | 2019-10-21 03:09 | NUR ---
Pt reports improved pain control throughout the afternoon with fentanyl patch and PRN morphine. Pt received dose of PRN morphine with HS meds and rested comfortably until now. Pt reporting mild headache, given PRN ibuprofen per request. Pt reports knee pain is minimal currently. Elevated LLE on 2 pillows for maximal comfort. Pt now watching TV and eating crackers, denies further c/o.
[2019-10-21 05:04] VITALS: BP 154/91
[2019-10-21] MEDS: CLINDAMYCIN 600MG PREMIX 50 ML IV SCH ×3 (06:06→21:48)
[2019-10-21] MEDS: amLODIPine BESYLATE 10 MG TABLET PO SCH (09:12)
[2019-10-21] MEDS: ALLOPURINOL 100 MG TABLET. PO SCH (09:12)
[2019-10-21] MEDS: LACTOBACILLUS RHAMNOSUS GG 1 CAPSULE. PO SCH ×2 (09:12→20:01)
[2019-10-21 11:12] VITALS: BP 150/83
[2019-10-21] MEDS: ENOXAPARIN 40 MG/0.4 ML SYRINGE. SQ SCH (11:28)
[2019-10-21] MEDS: MORPHINE SULFATE 2 MG/ML DISP.SYRIN. IV PRN (11:29)
[2019-10-21] MEDS ORDERED: VANCOMYCIN PER PHARMACY MC PRN (12:15)
[2019-10-21] MEDS ORDERED: VANCOMYCIN 2 GM in IV NORMAL SALINE 500ML 500 ML IV ONE ×2 (12:15→12:30)
--- NOTE | 2019-10-21 12:46 | PN ---
DATE: SUBJECTIVE: A 64-year-old male with cellulitis to his left leg. He has failed outpatient therapy. He continues to make some good progress. There is some wrinkling to the skin showing the edema has gone down. OBJECTIVE: VITAL SIGNS: However, the patient is running a temperature up to 99.4, blood pressure 150/83, respiratory rate 20, pulse 77. EXTREMITIES: In any case, the left leg is less swollen, but markedly inflamed and irritated and an elevated temperature. We have added a second antibiotic to his regimen and we will continue to monitor him. I think right now his IV is with a PICC line and he will continue to make progress with that I hope. IMPRESSION: Sepsis, cellulitis, chronic kidney disease stage 3, hyperglycemia, hypokalemia, moderate protein malnutrition. PLAN: We will continue to monitor him here with IV antibiotic therapy. TONY MENDES MD DR: LEI/luciano JOB#: [id number] / [id number]
[2019-10-21] MEDS ORDERED: diphenhydrAMINE 50 MG/ML VIAL IVP ONE (13:00)
[2019-10-21 15:29] VITALS: BP 138/76
[2019-10-21 19:43] VITALS: BP 164/106
[2019-10-21] MEDS: HYDROcodone/APAP 7.5/325MG 1 TAB TABLET PO PRN (20:00)
[2019-10-21 22:55] VITALS: BP 146/90
[2019-10-22] MEDS: IBUPROFEN 400 MG TABLET. PO PRN ×2 (00:25→11:07)
[2019-10-22] MEDS: HYDROcodone/APAP 7.5/325MG 1 TAB TABLET PO PRN ×2 (02:05→08:11)
--- NOTE | 2019-10-22 05:10 | NUR ---
Pt sitting up in bed talking on phone at change of shift. Pt reports "improvement from reaction" from Vancomycin that occurred earlier today after receiving Benadryl. Pt also reports better pain control with fentanyl patch, only needed PRN Morphine once so far this shift and 2 doses of Lortab. Pt believes that his leg swelling is also improving...slightly. Dressing C/D/I to left knee and has it elevated on 2 pillows.
[2019-10-22] MEDS: CLINDAMYCIN 600MG PREMIX 50 ML IV SCH ×2 (05:47→14:13)
[2019-10-22 06:00] VITALS: BP 145/91
[2019-10-22] MEDS: LACTOBACILLUS RHAMNOSUS GG 1 CAPSULE. PO SCH (08:11)
[2019-10-22] MEDS: amLODIPine BESYLATE 10 MG TABLET PO SCH (08:11)
[2019-10-22] MEDS: ALLOPURINOL 100 MG TABLET. PO SCH (08:11)
[2019-10-22 10:21] LABS: BASO # 0.1 x10^3/uL (0.0-0.2); BASO % 1 % (0-3); EOS # 0.1 x10^3/uL (0.0-0.7); EOS % 1 % (0-3); HEMATOCRIT 44.1 % (39.0-53.0); LYMPH # 1.2 x10^3/uL (1.0-4.8); LYMPH % 15 % (24-48); MEAN CORPUSCULAR HEMOGLOBIN 32 pg (25-35); MEAN CORPUSCULAR HGB CONC 34 g/dL (31-37); MEAN CORPUSCULAR VOLUME 95 fL (79-100); MONO # 0.8 x10^3/uL (0.0-1.1); MONO % 10 % (0-9); NEUT % 74 % (31-73); PLATELET COUNT 161 x10^3/uL (140-400); RED BLOOD COUNT 4.63 x10^6/uL (4.30-5.70); RED CELL DISTRIBUTION WIDTH 14.3 % (11.5-14.5)
[2019-10-22 10:31] LABS: CALCIUM 8.8 mg/dL (8.5-10.1); CREATININE 1.6 mg/dL (0.7-1.3); GFR 52.6; POTASSIUM 3.3 mmol/L (3.5-5.1)
[2019-10-22 10:39] VITALS: BP 154/90
[2019-10-22] MEDS: MORPHINE SULFATE 2 MG/ML DISP.SYRIN. IV PRN (11:07)
--- NOTE | 2019-10-22 11:49 | RAD ---
Examination: FOOT LEFT 3V History: Reason: severe swollen and pain / Spl. Instructions: RN SAID TO DO BEFORE 12NOON / History: Comparison/Correlation: None Findings: 3 images were "obtained. Soft tissue swelling about the first metatarsophalangeal joint is noted. No fracture or bony destructive findings. No significant arthritic findings as measured for the patient's age. Impression: Soft tissue swelling about the first metatarsophalangeal joint medially. Correlate for possibility of gout, cellulitis, or history of injury. No bony destructive findings. Electronically signed by: Raymundo Bolaños MD (10/22/2019 11:46 AM) [id number]
[2019-10-22] MEDS ORDERED: POTASSIUM CHLORIDE 20 MEQ TABLET.ER. PO ONE (12:05)
[2019-10-22] MEDS: ENOXAPARIN 40 MG/0.4 ML SYRINGE. SQ SCH (12:06)
[2019-10-22] MEDS ORDERED: HYDR-2765 PO (15:08)
[2019-10-22] MEDS ORDERED: CLIN600P11 IV (15:08)
[2019-10-22] MEDS ORDERED: LACT1CAP19 PO (15:08)
[2019-10-22] MEDS ORDERED: LEVO750P IV (15:08)
[2019-10-22] MEDS ORDERED: HYDR-1179 PO (15:16)
--- NOTE | 2019-10-22 15:49 | NUR ---
NURSING NOTE DISCHARGE PT DISCHARGED HOME VIA WHEELCHAIR ACCOMPANIED BY SELF. WRITTEN AND VERBAL DISCHARGE INSTRUCTIONS GIVEN TO PT. PT IS TO COME IN Q8 HRS FOR OUTPATIENT ANTIBIOTICS. PT IS GO STOP BY DR MENDES OFFICE FOR PAIN MEDICATION PRESCRIPTION. NO COMPLICATIONS. GUANAKO ANGEL.
--- NOTE | 2019-10-22 18:15 | DS ---
DATE OF DISCHARGE: 10/22/2019 HOSPITAL COURSE: A 64-year-old male in with cellulitis to his left knee area, swollen left foot. The patient had failed outpatient therapy, ran temperatures in the 100-degree range, also hypertensive, last blood pressure 154/90, respiratory rate 20, pulse 75 and afebrile. The patient's white count was 8; however, he did note slightly low platelet count at one time, increase in neutrophils of 74%, monocytes at 10%. Chemistries were basically unremarkable, did have slightly elevated blood sugars of 128, creatinine came down from 2 down to 1.5 to 1.6. Sodium and potassium 137 and 3.3. The patient's CT scan of the knee did not show any signs of osteo, although he did have [id number] degenerative changes involving the left knee and cellulitis of course of the left knee area. The patient received IV VANCOMYCIN, had possibly an allergic reaction to that, switched him over to Levaquin and clindamycin since it was puncture type [facility]. In any case, the patient made good progress during the rest of his hospitalization and was stabilized and as a result of this was discharged home. He preferred to do that as an outpatient. He will be getting clindamycin and Levaquin as an outpatient and continue to monitor that knee for any signs of reinfection, although there was improvement while here in the hospital. IMPRESSION: Cellulitis to the left knee possible lymphangitis, nonresponsive to outpatient therapy, essential hypertension, hyperglycemia, hypokalemia. The patient continued to be monitored carefully. He had C-reactive protein of 106. He will be monitored carefully as an outpatient for these multiplicity of medical problems. TONY MENDES MD DR: LEI/luciano JOB#: [id number] / [id number]
== END 2019-10-22 15:52 | disposition home or self-care (01) | DRG 871 ==
LOC: 1 SOUTH 14:45
PROVIDERS: ADMIT Family Medicine; ATTEND Family Medicine
PROC: 02HV33Z Insertion of Infusion Device into Superior Vena Cava, Percutaneous Approach (ICD-10-PCS; principal; 2019-10-19)
PROC: B548ZZA Ultrasonography of Superior Vena Cava, Guidance (ICD-10-PCS; 2019-10-19)
DX: A41.4 Sepsis due to anaerobes (principal); N17.0 Acute kidney failure with tubular necrosis; L03.116 Cellulitis of left lower limb; E44.0 Moderate protein-calorie malnutrition; R73.9 Hyperglycemia, unspecified; I12.9 Hypertensive chronic kidney disease with stage 1 through stage 4 chronic kidney disease, or unspecified chronic kidney disease; N18.3 Chronic kidney disease, stage 3 (moderate); E87.6 Hypokalemia; G43.909 Migraine, unspecified, not intractable, without status migrainosus; Z86.61 Personal history of infections of the central nervous system; Z98.890 Other specified postprocedural states; Z87.891 Personal history of nicotine dependence; Z68.35 Body mass index [BMI] 35.0-35.9, adult
CPT/HCPCS: 36415; 73630; 73700; 80048; 80053; 83605; 85025; 86140; J1200; J1650; J1956; J2270; J3010; J3370; J3490; J7040